=== PATIENT | female | born 1955 | race Caucasian/White ===

== ENCOUNTER 2024-11-02 14:26 | Day surgery (SDC) | payer BC, MEDICARE, SELFPAY ==
[2024-11-02] VITALS (21 sets, daily range): BP systolic 114–155; BP diastolic 61–108; BMI 35.7; BMI 34.9
[2024-11-02 02:54] LABS: % Basophils 0.3 % (0-2); % Immature Granulocytes 0.6 % (0-0.5); % Lymphocytes 25.7 % (20.5-51.1); % Monocytes 10.8 % (1.7-9.3); % Neutrophils 60.6 % (42.2-75.2); Absolute Eosinophils 0.2 10^3/uL (0-0.7); Absolute Immature Granulocytes 0.1 10^3/uL (0-0.05); Absolute Lymphocytes 2.9 10^3/uL (1.2-3.4); Absolute Monocytes 1.2 10^3/uL (0.1-0.6); Absolute Neutrophils 6.9 10^3/uL (1.4-6.5); Hematocrit 40.8 % (37.0-47.0); Hemoglobin 13.1 g/dL (12.0-16.0); Mean Corp Hgb Conc. 32.1 g/dL (33.0-37.0); Mean Corpuscular Hgb 28.7 pg (27.0-31.0); Mean Corpuscular Volume 89.3 fL (81.0-99.0); Mean Platelet Volume 9.9 fL (7.4-10.4); Nucleated Red Blood Cells % 0 %; Platelet Count 315 10^3/uL (130-400); Red Blood Cell Count 4.57 10^6/uL (4.20-5.40); Red Cell Dist. Width 12.4 % (11.5-14.5); White Blood Cell Count 11.4 10^3/uL (4.8-10.8)
[2024-11-02 03:25] LABS: ALT (SGPT) 18 U/L (0-35); AST (SGOT) 21 U/L (14-36); Albumin 4.1 g/dl (3.5-5.0); Alkaline Phosphatase 111 U/L (38-126); Blood Urea Nitrogen 15 mg/dl (7-17); Calcium 8.9 mg/dl (8.4-10.2); Carbon Dioxide 25 mmol/L (22-30); Chloride 104 mmol/L (98-107); Estimated Creatinine Clearance 84 ml/min; Glucose 102 mg/dl (70-99); Lipase 91 U/L (23-300); Potassium 4.2 mmol/L (3.5-5.1); Sodium 138 mmol/L (135-145); Total Bilirubin 0.2 mg/dl (0.2-1.3); Total Protein 6.9 g/dl (6.3-8.2); eGFR > 60.00
--- NOTE | 2024-11-02 04:08 | ED.GENMED ---
History of Present Illness
General
Chief Complaint: Abdominal Pain
Source: patient and ambulance crew
Exam Limitations: none
Time Seen by Provider: 11/02/24 03:36
Nursing documentation reviewed up to this point in time: agreed with
History of Present Illness
History of Present Illness:
This is a 69-year-old woman with history of anxiety, GERD, hyperlipidemia. She presents with several hour history of generalized upper abdominal pain, bloating and gassiness in nature. Upper abdominal pain radiates bilaterally to her back and has
been constant over the past several hours. She admits to mild nausea but has had no vomiting. She passed 1 loose stool yesterday morning, 24 hours ago but no further diarrhea and does admit that she feels that she may need to pass a bowel movement
but really only to try and pass gas.
Questionable history of similar episode of abdominal pain a number of years ago.
No previous abdominal surgeries.
She denies fever nor chills.
She does admit to significant dietary indiscretion yesterday. She admits to 'eating a lot' of food throughout the day yesterday.
She denies dysuria and urgency and or hematuria. Since arrival to the ED she has had intermittent brief heartburn and rare episodes of burping. No upper back pain, no cough no shortness of breath, no dizziness nor lightheadedness.
She has not taken anything for discomfort.
She arrives via EMS, prehospital EKG is unremarkable.
Past History
Past History
ED Past Medical History: GERD, Hypercholesterolemia and Psychiatric (Anxiety)
ED Past Surgical History: None
Social History
Tobacco: Non-smoker
Alcohol: None
Personal: Single
Living: alone
Family History
Family History: Other (Noncontributory)
Phy Exam
Physical Exam
Physical Exam:
GENERAL: 69-year-old woman appears her stated age, awake and alert, mildly anxious, somewhat restless but easily communicative.
EYE: anicteric
NECK: Supple, nontender, no meningismus, no significant adenopathy.
ENT: oral mucosa is moist. No rhinorrhea.
CARDIAC: Regular rate and rhythm. no murmur.
LUNGS: Clear breath sounds bilaterally, no acute respiratory distress, no wheezes/rales/rhonchi
ABDOMEN: Rotund, mildly distended, mild generalized tenderness to the upper abdomen without rebound or guarding nor rigidity, moderately hyperactive bowel sounds. no cvat.
NEUROLOGICAL: Alert and oriented x3, no focal neuro deficits. Gait is marrero and steady.
SKIN: Warm and dry, normal color, skin intact. No rash.
MUSCULOSKELETAL: No C/C/E. peripheral pulses are full and equal b/l. No palpable tenderness.
PSYCH: Mildly anxious. Easily communicative.
Course
Orders/Labs/Results
Orders:
Orders
11/02/24 02:32
EKG [Electrocardiogram (*1)] Urgent
Reason for Study: Abdominal Pain
EKG- Treatment ONCE
11/02/24 02:46
Complete Blood Count/With Diff Urgent
Comprehensive Metabolic Panel Urgent
Lipase Urgent
11/02/24 04:05
Ketorolac [Toradol] 15 mg IV NOW STA
Ondansetron Injectable [Zofran] 4 mg IV NOW STA
Pantoprazole [Protonix IV] 40 mg IV NOW STA
11/02/24 04:07
CT Abd/pel Without Iv Or Oral Urgent
Comment: pt refusing iv contrast ok to change per Dr Faulkner
Reason For Exam: generalized upper abd pain, hyperactive BS.
11/02/24 04:14
Lactic Acid Urgent
11/02/24 04:31
Urinalysis Reflex To Culture Urgent
Date Specimen was Collected: 11/02/24
Time Specimen was Collected: 04:22
Urine Microscopic Reflex Cult Urgent
Urine Culture Urgent
CHAGO Source: U
Specimen Description:
Date Specimen was Collected: 11/02/24
Time Specimen was Collected: 04:22
11/02/24 05:58
US Abdomen Complete/Upper Urgent
Comment:
Reason For Exam: RUQ abd pain, gb stones on CT-concern for cholecys
11/02/24 07:48
Aztreonam [Azactam] 2,000 mg IV NOW STA
MetroNIDAZOLE IVPB 500 mg IVPB NOW MetroNIDAZOLE 500 MG/100 ML [Flagyl 500 mg] 100 ml IV NOW
11/02/24 07:48
0.9% Sodium Chloride 1000 ml [Nss] 1,000 ml IV 125 mls/hr
Abnormal Lab Results
11/02/24 11/02/24
02:46 04:31
WBC 11.4 H 10^3/uL
(4.8-10.8)
MCHC 32.1 L g/dL
(33.0-37.0)
Abs Immat Gran (auto) 0.1 H 10^3/uL
(0-0.05)
Absolute Neuts (auto) 6.9 H 10^3/uL
(1.4-6.5)
Absolute Monos (auto) 1.2 H 10^3/uL
(0.1-0.6)
Immature Gran % 0.6 H %
(0-0.5)
Monocytes % 10.8 H %
(1.7-9.3)
Glucose 102 H mg/dl
(70-99)
Leukocyte Esterase Rfl Trace A
(Negative)
Urine Bacteria (Reflex) Many A
(Negative)
11/02/24 02:46
11/02/24 02:46
Vital Signs
Initial and Last Documented VS:
Initial Vital Signs
Temp
97.6 F
11/02/24 02:32
Last Documented Vital Signs
Temp Pulse Resp BP Pulse Ox
97.6 F 93 14 136/70 93
11/02/24 02:40 01/16/25 05:45 11/02/24 05:45 11/02/24 06:03 11/02/24 06:03
MDM/Problems Addressed
Differential Diagnosis Includes:
Concern for acute gastroenteritis, small bowel obstruction, gastritis, GERD, diverticulitis, pancreatitis, cholecystitis, kidney stone, UTI/pyelonephritis, ischemic bowel.
EKG prehospital and again upon arrival to the ED both within normal limits. No evidence of ischemia.
Labs thus far reveal mildly elevated white blood cell count of 11.4. Unremarkable chemistries including normal LFTs, normal lipase.
No prior history of abdominal surgeries thus small bowel obstruction is less likely but not unheard of, patient may have internal hernia/small bowel obstruction. Other consideration is ischemic bowel but again less likely.
Will check CT abdomen pelvis with IV contrast and will check lactic acid.
Will medicate for pain and nausea with Toradol, Zofran and will give an IV dose of Protonix.
*Radiology
Radiology exam reviewed: radiology read reviewed (CAT scan shows cholelithiasis with gallbladder distention suspicious for cholecystitis.)
*Pulse Oximetry
Patient hypoxic: no
*EKG
Interpreted by ED Provider?: Yes
Interpretation: normal
Comparison EKG: no comparison EKG present
Rate: normal
Rhythm: sinus
[place]: normal axis
Interval: normal interval
QRS Pattern: normal QRS
Ischemia: no ischemia
*Lead Athlete Interpretation
Rate: normal
Interpretation: normal
Rhythm: sinus
*Critical Care Note
Total Time (30-74mins, 75-104mins- exclusive of procedures): Not Applicable
Update Note
Update Note:
06:00
Patient feeling improved after IV Toradol but pain has not completely resolved.
Patient refused IV contrast with CAT scan thus dry CT performed. CAT scan shows cholelithiasis with gallbladder distention suspicious for cholecystitis. There is note of robin mesentery with mesenteric adenopathy reflecting chronic sclerosing
mesenteritis. There is note of constipation without bowel obstruction nor diverticulitis. No obstructing renal stone.
Will check abdominal ultrasound.
07:45
With some right upper quadrant tenderness to palpation.
Ultrasound showed a large gallstone lodged in the neck of the gallbladder with distended gallbladder, thickened gallbladder wall concerning for acute cholecystitis.
This combined with mildly elevated white blood cell count, significant concern for cholecystitis.
I have spoken with patient at length and have spoken with her PCP in [place], we had a phone conversation on speaker phone with the patient. He agrees with my findings and agrees that patient requires hospitalization with general surgery
evaluation and initiation of antibiotics.
She is agreeable with this plan.
Case discussed with general surgery.
Will admit to general surgery service.
Patient notes multiple antibiotic intolerances. Will trial IV JAYDA treat in a.m. as well as metronidazole.
Will continue IV fluids and n.p.o. status.
Pain medication as needed
ED Attending Note
-
Portions of this chart may have been created with voice recognition software.� Occasional wrong word or��sound alike� substitutions may have occurred due to the inherent limitations of voice recognition software.
Discharge Plan
Departure
Patient Disposition: Admit
Date of Disposition: 11/02/24
Time of Disposition: 07:52
Admit to: Med/Surg
Admit to doctor: Sonali
Presentation/result/management discussed w/ accepting MD/DO: gen surgery
Discharge Problem:
Acute calculous cholecystitis
Referrals:
UNKNOWN - PT DOES,NOT KNOW [Family Provider] -
Interventions
Interventions:
*Risk Screen - Suicide Last Done: 11/02/24 02:32
*General Assessment Last Done: 11/02/24 02:32
*Neglect/Abuse Screening Last Done: 11/02/24 02:32
ED- Fall Risk Assessment Last Done: 11/02/24 02:32
*ED COVID-19 Vaccine History Last Done: 11/02/24 02:32
PQ-Tcmhqq-Xzrigyxzqc Assessment Last Done: 11/02/24 02:41
Discharge Date and Time
Print Language: NEPALI
[2024-11-02] MEDS: ZOFRAN 4 MG IV ×2 (04:16→12:00)
[2024-11-02] MEDS: TORADOL 15 MG IV (04:16)
[2024-11-02] MEDS: PROTONIX IV 40 MG IV (04:16)
[2024-11-02 04:44] LABS: Urine Albumin Negative (Neg - Trace); Urine Bilirubin Negative (Negative); Urine Character Clear (Clear); Urine Color Yellow; Urine Glucose Negative (Negative); Urine Ketone Negative (Negative); Urine Leukocyte Trace (Negative); Urine Nitrite Negative (Negative); Urine Occult Blood Negative (Negative); Urine Urobilinogen Negative (Neg - 1+)
[2024-11-02 04:48] LABS: Lactic Acid 1.2 mmol/L (0.7-2.0)
[2024-11-02 06:16] LABS: Urine Mucus Moderate; Urine Squamous Cell >30 /LPF (Few)
[2024-11-02 06:17] LABS: Urine Bacteria Many (Negative)
[2024-11-02 06:18] LABS: Urine Red Blood Cell 0-2 /HPF (0-2)
[2024-11-02] MEDS: AZACTAM 2000 MG IV (08:23)
[2024-11-02] MEDS: FLAGYL 500 MG 100 IV (08:23)
[2024-11-02] MEDS: NSS 1000 IV ×2 (08:26→22:27)
--- NOTE | 2024-11-02 11:38 | HP.FOC2 ---
Focused History & Physical
Chief Complaint
HPI:
Chief Complaint: Epigastric abdominal pain
HPI / Indication for Planned Procedure: Patient is a 69-year-old female who was in her usual baseline state of health until this past evening when she developed the acute onset of epigastric abdominal pain radiating to her back. She has had some
mild discomfort over the past few days but not to the severity. She had nausea and anorexia but no vomiting. Severity of symptoms prompted emergency department evaluation early this a.m. Milder symptoms similarly in the past. Bowels generally
moving regularly. No associated symptoms.
Relevant Past Medical History: Other (Hypercholesterolemia, anxiety)
Relevant Social History: Negative
Relevant Family History: Negative
Relevant Past Surgical History: Negative
Review of Systems
Review of Pertinent Systems: All Systems Negative
Medication
See Medication form for detailed medications: Yes
Medication List (including Herbals & OTC):
citalopram 20 mg tablet (Celexa) 20 mg PO DAILY Mental Health 11/02/24
estradiol 10 mcg vaginal tablet (Yuvafem) 10 mcg vaginal SUFR Hormonal Agent 11/02/24
rosuvastatin 5 mg tablet (Crestor) 5 mg PO QPM High Cholesterol 11/02/24
Medications Reviewed: Yes
Allergies and Reactions
Patient has Allergies: Yes
Noted Allergies and Reactions:
Allergy/AdvReac Type Severity Reaction Status Date / Time
Cephalosporins Allergy Unknown Verified 11/02/24 02:31
ciprofloxacin Allergy Unknown Verified 11/02/24 02:31
codeine Allergy Unknown Verified 11/02/24 02:31
nitroglycerin Allergy Unknown Verified 11/02/24 02:31
[From Nitrostat]
Penicillins Allergy Unknown Verified 11/02/24 02:31
Sulfa (Sulfonamide Allergy Unknown Verified 11/02/24 02:31
Antibiotics)
trimethoprim Allergy Unknown Verified 11/02/24 02:31
Pertinent Physical Exam
All Other Systems: Negative
Head/Neck: Normal
Lungs: Normal
Heart: Normal
Abdomen: Other (Soft, nondistended, mild tenderness palpation epigastric and right upper quadrant. No rebound rigidity or guarding.)
Extremities: Normal
Neurological: Normal
Diagnosis / Assessment
Assessment: 69-year-old female with acute calculus cholecystitis versus acute biliary colic.
Ultrasound and CT imaging confirms distended gallbladder, mild wall thickening and gallstones. Mild leukocytosis. LFTs normal. No biliary ductal dilation.
Discussed with patient indications for cholecystectomy and patient in agreement to proceed with surgery. Laparoscopic cholecystectomy with possible intraoperative cholangiogram was reviewed in detail including the operative technique utilizing a
diagram and drawing. We discussed alternative treatment options, benefits and risks such as but not limited to bleeding, infectious and wound related complications, iatrogenic injury to surrounding viscera, bile leak, common bile duct injury and
postcholecystectomy fatty food intolerances. We discussed the typical postoperative recovery pending operative findings. Any of the patient's concerns or questions were fully addressed.
Plan / Procedure
Patient has been added onto the OR schedule today for a laparoscopic cholecystectomy with probable cholangiogram
N.p.o.
IV fluids
Azactam and Flagyl administered in the emergency department
Analgesics and antiemetics as needed
Anesthesia/Sedation to be done by Anesthesia Provider: Yes
[2024-11-02] MEDS: NSS IV (14:38)
--- NOTE | 2024-11-02 15:16 | W.SUR.PREOP ---
Pre-Operative Surgical Note
-
I have examined this patient prior to the performance of the scheduled procedure.
The patient's condition is unchanged from the time of the current History and
Physical and the patient is able to undergo the scheduled procedure.
--- NOTE | 2024-11-02 15:30 | PTCARENOTE ---
Pt arrived from ED, walked w/ standby assist to bed. Denies pain, denies nausea. NS @ 125ml/hr L AC. OR called for pt, sent.
--- NOTE | 2024-11-02 17:04 | W.IMMPOSTOP ---
Addendum entered and electronically signed by Marcio Lyon MD 11/02/24 17:19:
# [id number]
pts sister updated post op via phone call
Original Note:
Surgical Immed Post Op Note
-
Primary Surgeon: Marcio Lyon MD
Assisting Surgeon: Adam Jules MD PGY1
Pre-op Diagnosis: Acute calculus cholecystitis
Post-op Diagnosis: Acute calculus cholecystitis
Procedure Performed: Laparoscopic cholecystectomy with intraoperative cholangiogram
Anesthesia Type: GETA +0.25% Marcaine with epinephrine
Specimen / Cultures: Gallbladder/none
Estimated Blood Loss: 8 mL
Complications: None immediate
Operative Findings: Distended gallbladder with stones. Few omental adhesions. Gallbladder wall thickening and edema consistent with acute calculus cholecystitis. Normal intraoperative cholangiogram. Cystic duct and artery individually controlled
with clips. Single posterior cystic artery branch hemoclips. Gallbladder removed intact and extracted at epigastric port site.
Plan: Routine postoperative care
low-fat diet as tolerated
probable DC tomorrow
--- NOTE | 2024-11-02 18:37 | PTCARENOTE ---
Pt returned from OR, 5 lap sites c/d/i w/ Dermabond. VSS. Denies pain or nausea. Admission completed at this time.
[2024-11-03 03:15] VITALS: BP 112/69
[2024-11-03 07:32] VITALS: BP 126/68
[2024-11-03] MEDS: NSS 1000 IV (07:47)
[2024-11-03] MEDS: CELEXA 20 MG PO (07:47)
[2024-11-03 09:26] LABS: Hepatitis C Antibody Negative (Negative)
--- NOTE | 2024-11-03 10:14 | W.PN.GS2 ---
Addendum entered and electronically signed by Derrek Trujillo MD 11/03/24 11:46:
I saw and examined the patient.
The Outdoor Adventure Leader's note was reviewed and I agree with the note.
Comment: doing well post-op, ambulating, aniket PO, pain controlled. exam approp ttp with incisions cdi; ok for dc
Original Note:
Today's Communication / Plan
-
dispo planning
Assessment / Plan
-
69 yo female presenting with ACC now POD #1 lap eden
AFVSS
Following expected post operative course
Tolerating diet, pain well managed. Declines narcotics
--Continue diet
--Analgesics prn
--Discharge planning
Subjective Data
-
Date of Service: November 03, 2024
Patient seen and examined at bedside with Dr. Trujillo. Questions addressed. Denies n/v. Tolerating diet. Some soreness to the RUQ.
Objective Data
-
Intake and Output
11/02/24 11/03/24 11/04/24
06:59 06:59 06:59
Intake Total 2109
Balance 2109
Intake:
Oral fluids 510 / 510
IV fluids (Total) 1600 / 1600
Normosol 100 / 100
Other:
Number of approximated MODERATE 1
amounts of urine
Vital Signs
Temp Pulse Resp BP Pulse Ox
97.9 F 73 20 126/68 96
11/03/24 07:32 11/03/24 07:32 11/03/24 07:32 11/03/24 07:32 11/03/24 07:32
Lab Results
11/02/24 02:46
11/02/24 02:46
Calcium 8.9 mg/dl (8.4-10.2) 11/02/24 02:46
Total Bilirubin 0.2 mg/dl (0.2-1.3) 11/02/24 02:46
AST 21 U/L (14-36) 11/02/24 02:46
ALT 18 U/L (0-35) 11/02/24 02:46
Alkaline Phosphatase 111 U/L (38-126) 11/02/24 02:46
Total Protein 6.9 g/dl (6.3-8.2) 11/02/24 02:46
Albumin 4.1 g/dl (3.5-5.0) 11/02/24 02:46
Physical Exam
-
NAD
ABD soft, ND, mild incisional tenderenss
Patient has a chew catheter: No
Patient has a central line: No
--- NOTE | 2024-11-03 10:21 | W.DS.TRANS ---
DC Summary - Political Analyst
-
Discharge Instructions:
Discharge Diagnosis/Procedures Acute calculus cholecystitis. Laparoscopic
cholecystectomy intraoperative cholangiogram
Diet As tolerated,Low Fat
Additional Diets Smaller portions initially after surgery as
abdominal bloating and distention are common for
the first few days.
Activity No strenuous activity
Additional Activity No lifting over 20 pounds for 3 to 4 weeks
postoperatively
Driving Restrictions No driving 1 to 3 days or if using narcotics
Bathing Restrictions OK to Shower
Wound Care Glue at surgical sites typically peels off in 2
to 3 weeks
Instructions:
Stand-Alone Forms:
Changes to Home Medications: No
Discharge Medications:
DC Medications w/original date entered in [facility]
citalopram 20 mg tablet (Celexa) 20 mg PO DAILY Mental Health 11/02/24
estradiol 10 mcg vaginal tablet (Yuvafem) 10 mcg vaginal SUFR Hormonal Agent 11/02/24
rosuvastatin 5 mg tablet (Crestor) 5 mg PO QPM High Cholesterol 11/02/24
acetaminophen 325 mg tablet 650 mg (2 x 325 mg) PO Q4HPRN PRN mild pain #1 tab 11/03/24
ibuprofen 200 mg tablet 400 - 600 mg (2 - 3 x 200 mg) PO Q6HPRN PRN moderate pain #1 tab 11/03/24
Home Medication Changes
Pending Results: No
--- NOTE | 2024-11-03 10:28 | CM ---
CM reviewed medical records. Plan for discharge to home. No needs noted.
PLAN: Home no needs
[2024-11-03 11:36] VITALS: BP 137/65
[2024-11-03] MEDS: TYLENOL 650 MG PO (12:42)
== END 2024-11-03 14:26 | disposition home or self-care (01) ==
LOC: PACU 14:26
PROVIDERS: Emergency Medicine; ATTENDING PHYSICIAN Surgery; EMERGENCY PHYSICIAN Emergency Medicine
DX: K80.00 Calculus of gallbladder with acute cholecystitis without obstruction (principal)
CPT/HCPCS: 47563; 88304; 74176; 74300; 76000; 76700; 80053; 81003; 81015; 83605; 83690; 85025; 86803; 87086; 93005; 96365; 96375; 99285

== ENCOUNTER 2025-03-18 02:16 | Emergency (ER) | payer MEDICARE, BC, SELFPAY ==
[2025-03-18 02:22] VITALS: BP 134/90
[2025-03-18 02:51] LABS: % Basophils 0.4 % (0-2); % Eosinophils 1.9 % (0-6); % Immature Granulocytes 0.2 % (0-0.5); % Lymphocytes 28.4 % (20.5-51.1); % Monocytes 9.5 % (1.7-9.3); % Neutrophils 59.6 % (42.2-75.2); Absolute Basophils 0.1 10^3/uL (0-0.2); Absolute Eosinophils 0.2 10^3/uL (0-0.7); Absolute Lymphocytes 3.2 10^3/uL (1.2-3.4); Absolute Monocytes 1.1 10^3/uL (0.1-0.6); Absolute Neutrophils 6.7 10^3/uL (1.4-6.5); Hematocrit 40.4 % (37.0-47.0); Hemoglobin 13.6 g/dL (12.0-16.0); Mean Corp Hgb Conc. 33.7 g/dL (33.0-37.0); Mean Corpuscular Hgb 29.1 pg (27.0-31.0); Mean Corpuscular Volume 86.5 fL (81.0-99.0); Mean Platelet Volume 10.3 fL (7.4-10.4); Nucleated Red Blood Cells % 0 %; Platelet Count 309 10^3/uL (130-400); Red Blood Cell Count 4.67 10^6/uL (4.20-5.40); Red Cell Dist. Width 12.2 % (11.5-14.5); White Blood Cell Count 11.2 10^3/uL (4.8-10.8)
[2025-03-18 03:15] LABS: Troponin I < 0.012 ng/ml
[2025-03-18 03:25] LABS: ALT (SGPT) 31 U/L (0-35); AST (SGOT) 27 U/L (14-36); Albumin 4.5 g/dl (3.5-5.0); Alkaline Phosphatase 115 U/L (38-126); Blood Urea Nitrogen 21 mg/dl (7-17); Calcium 10.1 mg/dl (8.4-10.2); Carbon Dioxide 26 mmol/L (22-30); Chloride 108 mmol/L (98-107); Glucose 106 mg/dl (70-99); Potassium 4.1 mmol/L (3.5-5.1); Sodium 142 mmol/L (135-145); Total Bilirubin 0.2 mg/dl (0.2-1.3); Total Protein 7.4 g/dl (6.3-8.2); eGFR > 60.00
[2025-03-18 04:05] VITALS: BMI 33.2
[2025-03-18 04:11] VITALS: BP 138/92
[2025-03-18 05:32] VITALS: BP 141/81
--- NOTE | 2025-03-18 06:01 | ED.GENMED ---
History of Present Illness
General
Chief Complaint: Chest Pain
Source: patient
Exam Limitations: none
Time Seen by Provider: 03/18/25 05:58
History of Present Illness
History of Present Illness:
69yoF with a history of hyperlipidemia, obesity, and anxiety presenting for evaluation of chest pain. Patient reports chest discomfort that started yesterday afternoon. Pain was initially mild and worsened overnight. Pain is intermittent and
occurred every 1-2 hours overnight. Pain is described as a 'ping' that lasts a second at a time. Pain seems to occur randomly. Nothing makes the pain better or worse. Specifically, she denies any pleuritic or exertional pain. She researched her
symptoms online and became anxious and decided to come to the ED. Pain has now resolved. Of note, patient has been lifting weights recently and she believes she may have strained her chest wall. She denies any shortness of breath, vomiting,
diaphoresis. No prior history of heart disease.
Past History
Past History
ED Past Medical History: GERD, Hypercholesterolemia and Psychiatric (Anxiety)
ED Past Surgical History: None
Social History
Tobacco: Non-smoker
Alcohol: None
Personal: Single
Living: alone
Family History
Family History: Other (Noncontributory)
Phy Exam
General Physical Exam
General Presentation: well appearing and no apparent distress
General age: appears stated age
General Skin: warm and dry
General Habitus: normal
General Mental: alert
ENT Exam
ENT Exam: normocephalic
Cardiovascular Exam
Cardiovascular Exam: regular rate/rhythm, no edema, no murmur and normal peripheral pulses (2+ radial pulses bilaterally)
Pulmonary Exam
Pulmonary Exam: lungs clear, no respiratory distress, no rales, chest non tender, no crackles, no rhonchi and no wheezing
Neurological Exam
Neurological Exam: alert
[place] Coma Scale
Eye Opening: Spontaneous
Verbal Response: Oriented
Motor Response: Obeys Commands
GCS Total Score: 15
Skin Exam
Skin Exam: normal color and warm/dry
Psychiatric Exam
Psychiatric Exam: normal mood/affect
Scores
Heart Score for Chest Pain Patients
STEMI patient?: No
History: Slightly or Non-Suspicious
ECG: Normal
Age: >/= 65 years
Risk Factors: 1 or 2 Risk Factors
Troponin: </= Normal Limit
Heart Score for Chest Pain Patients: 3
Heart Score Risk: 2.5% MACE over next 6 weeks
Course
Orders/Labs/Results
Orders:
Orders
03/18/25 02:27
Electrocardiogram (*1) Urgent
Reason for Study: Chest Pain
Other Reason for Exam: INTERMITTANT
EKG- Treatment ONCE
03/18/25 02:43
Complete Blood Count/With Diff Urgent
Comprehensive Metabolic Panel Urgent
Troponin I Urgent
03/18/25 05:30
Troponin I Urgent
03/18/25 06:01
Electrocardiogram (*1) Urgent
Reason for Study: Chest Pain
EKG- Treatment ONCE
Abnormal Lab Results
03/18/25
02:43
WBC 11.2 H 10^3/uL
(4.8-10.8)
Absolute Neuts (auto) 6.7 H 10^3/uL
(1.4-6.5)
Absolute Monos (auto) 1.1 H 10^3/uL
(0.1-0.6)
Monocytes % 9.5 H %
(1.7-9.3)
Chloride 108 H mmol/L
(98-107)
BUN 21 H mg/dl
(7-17)
Glucose 106 H mg/dl
(70-99)
03/18/25 02:43
03/18/25 02:43
Vital Signs
Initial and Last Documented VS:
Initial Vital Signs
Temp Pulse Resp BP Pulse Ox
97.4 F 66 18 134/90 98
03/18/25 02:22 03/18/25 02:22 03/18/25 02:22 03/18/25 02:22 03/18/25 02:22
Last Documented Vital Signs
Temp Pulse Resp BP Pulse Ox
97.4 F 60 16 133/94 96
03/18/25 02:22 03/18/25 06:39 03/18/25 05:32 03/18/25 06:39 03/18/25 06:39
MDM/Problems Addressed
Differential Diagnosis Includes:
69yoF here with chest pain that began yesterday. Intermittent 'pings' in her L chest. Lasts a second at a time and comes on randomly. Now resolved. VSS. She is well appearing in no distress. Exam is reassuring. Differential diagnosis includes but is
not limited to: musculoskeletal, pleurisy, nonspecific chest pain, less likely ACS
Initial ED plan: Workup obtained by nursing staff prior to initial exam. EKG shows NSR without ischemic changes and troponin WNL. Patient stating that her symptoms have resolved and she is requesting to go home to picker tender her mother. She is
agreeable stay for a repeat troponin and EKG. Recommended CXR which patient declines.
*EKG
Interpreted by ED Provider?: Yes
EKG Intrepretation Date: 03/18/25
Heart Rate: 67
Rate: normal
Rhythm: sinus
[place]: normal axis
Interval: normal interval
QRS Pattern: normal QRS
Ischemia: no ischemia
*Critical Care Note
Total Time (30-74mins, 75-104mins- exclusive of procedures): Not Applicable
Update Note
Update Note:
Repeat EKG and troponin unchanged. HEART score is 2 for risk factors and age. No indication for hospitalization. Advised f/u with PCP and ED return precautions reviewed. Patient discharged in stable condition.
ED Attending Note
-
Portions of this chart may have been created with voice recognition software.� Occasional wrong word or��sound alike� substitutions may have occurred due to the inherent limitations of voice recognition software.
Discharge Plan
Departure
Patient Disposition: Home (Routine Discharge)
Date of Disposition: 03/18/25
Time of Disposition: 06:26
Patient with high blood pressure during this ER visit?: Yes
Discharge Problem:
Atypical chest pain
Instructions: Chest Pain PCP Follow Up
Prescriptions:
No Action
rosuvastatin [Crestor] 5 mg Tablet
5 mg PO QPM
citalopram [Celexa] 20 mg Tablet
20 mg PO DAILY
estradiol [Yuvafem] 10 mcg Tablet
10 mcg VAGINAL SUFR
acetaminophen [acetaminophen] 325 mg tablet
650 mg PO Q4HPRN PRN (Reason: mild pain) Qty: 1 0RF
ibuprofen 200 mg tablet
400 - 600 mg PO Q6HPRN PRN (Reason: moderate pain) Qty: 1 0RF
Referrals:
PRIVATE,PHYSICIAN [Family Provider, Internal Medicine]
Activity Restrictions/Additional Instructions:
Please follow-up with your family doctor this week. Return to the ER with any new or worsening symptoms.
Interventions
Interventions:
*Risk Screen - Suicide Last Done: 03/18/25 02:22
*General Assessment Last Done: 03/18/25 06:50
*Neglect/Abuse Screening Last Done: 03/18/25 02:22
*ED- Fall Risk Assessment Last Done: 03/18/25 06:50
*ED COVID-19 Vaccine History Last Done: 03/18/25 06:50
*Nursing Disposition Last Done: 03/18/25 06:50
ED- Cardiac Assessment Last Done: 03/18/25 04:05
ED-Psychological Assessment Last Done: 03/18/25 04:05
Discharge Date and Time
Discharge Date/Time: 03/18/25 06:53
Print Language: FAROESE
[2025-03-18 06:10] LABS: Troponin I < 0.012 ng/ml
[2025-03-18 06:39] VITALS: BP 133/94
== END 2025-03-18 06:53 | disposition home or self-care (01) ==
LOC: EMR 02:16
PROVIDERS: Emergency Medicine; EMERGENCY PHYSICIAN Emergency Medicine
DX: R07.89 Other chest pain (principal); E78.00 Pure hypercholesterolemia, unspecified; K21.9 Gastro-esophageal reflux disease without esophagitis
CPT/HCPCS: 99284; 80053; 84484; 85025; 93005